=== PATIENT | female | born 1985 | race Caucasian/White ===

== ENCOUNTER 2018-12-14 16:23 | Inpatient (IN) | payer MEDICAID ==
[2018-12-14] MEDS ORDERED: METHYLERGONOVINE 0.2 MG INJ IM ×2 (17:00→19:30)
[2018-12-14] MEDS ORDERED: MISOPROSTOL 200 MCG TAB PR ×2 (17:00→19:30)
[2018-12-14] MEDS ORDERED: CEFAZOLIN 2 GM/50 ML (PMX) 50 ML IVPB (17:00)
[2018-12-14] MEDS ORDERED: OXYTOCIN 30 UNITS/LR 500 ML IV ×3 (17:00→19:30)
[2018-12-14] MEDS ORDERED: CARBOPROST 250 MCG INJ IM ×2 (17:00→19:30)
[2018-12-14] MEDS: LACTATED RINGER'S 1,000 ML IV ×2 (17:13→17:46)
[2018-12-14 17:44] LABS: ADD MAN DIFF? NO
[2018-12-14 18:08] LABS: WHITE BLOOD COUNT 13.3 10^3/ul (4.8-10.8)
[2018-12-14 18:08] LABS: BASOPHILS % 0.3 % (0.0-2.0); EOSINOPHILS % 0.2 % (0.0-7.0); HEMATOCRIT 36.6 % (37.0-47.0); HEMOGLOBIN 12.1 g/dl (12.0-16.0); INR 0.92; LYMPHOCYTES # 1.8 10^3/ul (0.8-2.9); LYMPHOCYTES % 13.3 % (15.0-51.0); MEAN CORPUSCULAR HEMOGLOBIN 30.6 pg (29.0-33.0); MEAN CORPUSCULAR HGB CONC 33.1 g/dl (32.0-37.0); MEAN CORPUSCULAR VOLUME 92.4 fl (82.0-101.0); MEAN PLATELET VOLUME 11.5 fl (7.4-10.4); MONOCYTES % 7.4 % (0.0-11.0); NEUTROPHIL # 10.3 10^3/ul (1.6-7.5); NEUTROPHILS % 77.7 % (39.0-77.0); PLATELET COUNT 242 10^3/UL (140-415); PROTIME 12.5 Sec (11.9-14.9); RED BLOOD COUNT 3.96 10^6/ul (4.20-5.40); RED CELL DISTRIBUTION WIDTH 12.6 % (11.5-14.5)
[2018-12-14 18:09] LABS: PARTIAL THROMBOPLASTIN TIME 26.1 Sec (23.0-35.0)
[2018-12-14] MEDS ORDERED: CITRIC ACID/NA CITRATE 30 ML CUP (18:14)
[2018-12-14] MEDS ORDERED: METOCLOPRAMIDE 10 MG INJ (18:21)
[2018-12-14] MEDS ORDERED: morphine SULFATE/PF (10 MG/10 ML) INJ (18:21)
[2018-12-14] MEDS ORDERED: ONDANSETRON 4 MG INJ (18:21)
[2018-12-14] MEDS ORDERED: KETOROLAC 30 MG INJ (18:22)
[2018-12-14] MEDS: CITRIC ACID/NA CITRATE 30 ML CUP PO (18:30)
[2018-12-14] MEDS ORDERED: EPHEDrine SULFATE 50 MG/5 ML SYG (18:36)
[2018-12-14 18:43] LABS: HEPATITIS B SURFACE ANTIGEN NEGATIVE (NEGATIVE)
[2018-12-14] MEDS ORDERED: OXYCODONE/ACETAMINOPHEN (5/325) TAB PO ×2 (19:30)
[2018-12-14] MEDS ORDERED: NACL 0.9% 3 ML SYG IV (19:30)
[2018-12-14] MEDS ORDERED: LANOLIN HPA 1 PKT TOP (19:30)
[2018-12-14] MEDS: ACCU-CHEK XX (19:35)
[2018-12-14] MEDS: OXYTOCIN 30 UNITS/LR 500 ML IV (19:44)
[2018-12-14] MEDS: SENNA/DOCUSATE NA (8.6MG/50MG) TAB PO (21:00)
[2018-12-15] MEDS ORDERED: NALOXONE (0.4 MG/ML) INJ IV
[2018-12-15] MEDS ORDERED: morphine 2 MG INJ IV ×3
[2018-12-15] MEDS: OXYTOCIN 30 UNITS/LR 500 ML IV (00:18)
[2018-12-15] MEDS: CEFAZOLIN 2 GM/50 ML (PMX) 50 ML IVPB ×3 (00:18→15:23)
[2018-12-15] MEDS: DIPHENHYDRAMINE 50 MG INJ IV (00:19)
[2018-12-15] MEDS: ONDANSETRON 4 MG INJ IV (00:19)
[2018-12-15] MEDS: ACCU-CHEK XX ×4 (07:30→20:05)
[2018-12-15 08:10] LABS: ADD MAN DIFF? NO
[2018-12-15 08:15] LABS: WHITE BLOOD COUNT 20.8 10^3/ul (4.8-10.8)
[2018-12-15 08:15] LABS: ABNORMAL IP MESSAGE 1; BASOPHILS % 0.1 % (0.0-2.0); HEMATOCRIT 33.2 % (37.0-47.0); HEMOGLOBIN 11.1 g/dl (12.0-16.0); LYMPHOCYTES # 2.1 10^3/ul (0.8-2.9); LYMPHOCYTES % 9.9 % (15.0-51.0); MEAN CORPUSCULAR HEMOGLOBIN 30.5 pg (29.0-33.0); MEAN CORPUSCULAR HGB CONC 33.4 g/dl (32.0-37.0); MEAN CORPUSCULAR VOLUME 91.2 fl (82.0-101.0); MEAN PLATELET VOLUME 11.4 fl (7.4-10.4); MONOCYTE # 1.9 10^3/ul (0.3-0.9); MONOCYTES % 9.1 % (0.0-11.0); NEUTROPHIL # 16.7 10^3/ul (1.6-7.5); NEUTROPHILS % 80.2 % (39.0-77.0); PLATELET COUNT 219 10^3/UL (140-415); RED BLOOD COUNT 3.64 10^6/ul (4.20-5.40); RED CELL DISTRIBUTION WIDTH 12.8 % (11.5-14.5)
[2018-12-15 08:33] LABS: POSITIVE DIFF @See below
[2018-12-15] MEDS: SENNA/DOCUSATE NA (8.6MG/50MG) TAB PO ×2 (09:06→23:12)
[2018-12-15] MEDS: KETOROLAC 30 MG INJ IV (13:09)
[2018-12-15] MEDS: LACTATED RINGER'S 1,000 ML IV ×3 (13:09→21:09)
[2018-12-15] MEDS ORDERED: LACTATED RINGER'S 1,000 ML IV (13:30)
[2018-12-15 14:55] LABS: RAPID PLASMA REAGIN NONREACTIVE (NR)
[2018-12-15] MEDS: IBUPROFEN 600 MG TAB PO (23:15)
[2018-12-16] MEDS: IBUPROFEN 600 MG TAB PO ×4 (06:25→23:35)
[2018-12-16] MEDS: ACCU-CHEK XX (07:30)
[2018-12-16 08:36] LABS: ADD MAN DIFF? NO
[2018-12-16 09:04] LABS: BASOPHILS % 0.2 % (0.0-2.0); EOSINOPHILS % 0.2 % (0.0-7.0); HEMATOCRIT 37.3 % (37.0-47.0); HEMOGLOBIN 12.4 g/dl (12.0-16.0); LYMPHOCYTES # 1.8 10^3/ul (0.8-2.9); LYMPHOCYTES % 10.8 % (15.0-51.0); MEAN CORPUSCULAR HEMOGLOBIN 31.2 pg (29.0-33.0); MEAN CORPUSCULAR HGB CONC 33.2 g/dl (32.0-37.0); MEAN CORPUSCULAR VOLUME 93.7 fl (82.0-101.0); MEAN PLATELET VOLUME 11.4 fl (7.4-10.4); MONOCYTE # 1.5 10^3/ul (0.3-0.9); MONOCYTES % 8.8 % (0.0-11.0); NEUTROPHIL # 13.3 10^3/ul (1.6-7.5); NEUTROPHILS % 78.9 % (39.0-77.0); PLATELET COUNT 187 10^3/UL (140-415); RED BLOOD COUNT 3.98 10^6/ul (4.20-5.40); RED CELL DISTRIBUTION WIDTH 12.9 % (11.5-14.5)
[2018-12-16 09:04] LABS: WHITE BLOOD COUNT 16.8 10^3/ul (4.8-10.8)
[2018-12-16] MEDS: SENNA/DOCUSATE NA (8.6MG/50MG) TAB PO ×2 (10:05→21:12)
[2018-12-17] MEDS: IBUPROFEN 600 MG TAB PO ×3 (05:46→18:23)
[2018-12-17] MEDS: SENNA/DOCUSATE NA (8.6MG/50MG) TAB PO (09:25)
[2018-12-17] MEDS ORDERED: PETROLATUM 5 GM OINT TOP (20:18)
== END 2018-12-17 21:20 | disposition home or self-care (01) | DRG 788 ==
LOC: L-D 16:23 → PP1 21:50
PROVIDERS: Obstetrics & Gynecology
PROC: 10D00Z1 Extraction of Products of Conception, Low, Open Approach (ICD-10-PCS; principal; 2018-12-14 17:00)
DX: O24.420 Gestational diabetes mellitus in childbirth, diet controlled (principal); O34.219 Maternal care for unspecified type scar from previous cesarean delivery; Z3A.39 39 weeks gestation of pregnancy; Z37.0 Single live birth
CPT/HCPCS: 82962; 85025; 85610; 85730; 86592; 86850; 86900; 86901; 87340; 99464